=== PATIENT | female | born 1970 | race Caucasian/White ===

== ENCOUNTER 2017-05-08 08:35 | Emergency (ER) | payer OTHER ==
[~2017-05-08] VITALS: Ht 175.3 cm; Wt 117.0 kg
[~2017-05-08 08:35] MED LIST: AMLO2.5T75 PO; BAC10 PO; BACLOFEN; CIT20 PO; CLON-1 PO; CLON-303 PO; ESC10 PO; ESCI20TA38 PO; FENT-16 TD; GABA-1 PO; HYDR2TAB41 PO; LEVO50 PO; LEVO50TA80 PO; METO-1 PO; MORP30CA15 PO; MORP60CA15 PO; NAP550 PO; OXYC-717 PO; OXYC-865 PO; PERCOCET; PERCOCET PO; PRED20TA6 PO; PROM-110 PO; QUET200T29 PO; TRAZ-156 PO
[2017-05-08 08:39] VITALS: BP 128/91
[2017-05-08] MEDS ORDERED: ONDANSETRON 4 MG/2 ML VIAL IVP ONE (09:10)
[2017-05-08 09:17] LABS: PLATELET COUNT, AUTOMATED 201 K/uL (150-450)
--- NOTE | 2017-05-08 09:21 | ER Report ---
History and Physical Time Seen By MD: 08:45 Hx. of Stated Complaint: CONSTIPATION X 3 WEEKS HPI/ROS CHIEF COMPLAINT: Chronic constipation abdominal discomfort HISTORY OF PRESENT ILLNESS: Patient is a 46-year-old female multiple surgical history including abdominal back surgery comes in with chronic constipation is been seen by primary care given numerous laxatives evidently she is on significant amounts of opioids for the last 10 years patient states that she's had some loose bowel movements last couple days but nothing regular and she's having abdominal discomfort. Patient has had nausea without vomiting denies any additional complaints at this time has no fever chills or sweats REVIEW OF SYSTEMS: Respiratory: No cough, no dyspnea. Cardiovascular: No chest pain, no palpitations. Gastrointestinal: Abdominal pain constipation nausea without vomiting Musculoskeletal: Chronic back pain back pain. Remainder of the 14 system rev: Yes Allergies: Coded Allergies: iodine (Verified Allergy, Unknown, 03/07/15) codeine (Verified Adverse Reaction, Intermediate, NAUSEA AND VOMITING, 03/07/15) Uncoded Allergies: CONTRAST (Allergy, Intermediate, HIVES, 05/08/17) Home Meds Active Scripts Oxycodone Hcl/Acetaminophen (PERCOCET 5-325 MG TABLET) 1 Each Tablet, 1 EACH PO Q4-6H Y for PAIN, #15 TAB Prov:MICHEAL HICKMAN [facility] 03/07/15 Promethazine Hcl (PROMETHAZINE HCL) 25 Mg Tablet, 25 MG PO Q8H Y for NAUSEA/ VOMITING, #12 TAB Prov:MICHEAL HICKMAN [facility] 03/07/15 Trazodone Hcl (TRAZODONE HCL) 50 Mg Tablet, 50 MG PO BID, #60 Prov:GRECIA HARRIS MD 03/12/14 Reported Medications Gabapentin (Neurontin) 600 Mg Tablet, 600 MG PO TID, 0 Refills 11/16/10 Morphine Sulfate (Dinora) 30 Mg Cap.sr.pel, 90 MG PO QAM, 0 Refills 11/16/10 Levothyroxine Sodium (Levothyroxine Sodium) 50 Mcg Tablet, 50 MCG PO QAM, 0 Refills 11/16/10 Metoprolol Tartrate (Lopressor) 50 Mg Tablet, 50 MG PO BID, 0 Refills 11/16/10 Clonazepam (Klonopin) 1 Mg Tablet, 1 MG PO DAILY, 0 Refills 11/16/10 Baclofen (Lioresal) 10 Mg Tab, 20 MG PO QID, 0 Refills 11/16/10 Oxycodone Hcl/Acetaminophen (Percocet 10/325 Mg Tablet) 10 Mg/325 Mg Tab, 1 TAB PO PRN, 0 Refills 11/16/10 Discontinued Reported Medications Escitalopram Oxalate (LEXAPRO) 20 Mg Tablet, 20 MG PO QDAY 03/07/15 Amlodipine Besylate (Norvasc) 2.5 Mg Tablet, 2.5 MG PO QHS, 0 Refills 11/16/10 Discontinued Scripts Prednisone (PREDNISONE) 20 Mg Tablet, 20 MG PO BID, #10 TAB Prov:MICHEAL HICKMAN FURNITURE MANAGER 03/07/15 Reviewed Nurses Notes: Yes Old Medical Records Reviewed: Yes Hx Smoking: Yes Smoking Status: Current: Every Day Smoker Hx Substance Use Disorder: No Hx Alcohol Use: No Constitutional Vital Sign - Last 24 Hours 05/08/17 05/08/17 08:39 09:41 Temp 98.3 Pulse 95 Resp 16 B/P (MAP) 128/91 Pulse Ox 93 O2 Delivery Room Air O2 Flow Rate 2.0 Physical Exam General Appearance: [The patient is alert, has no immediate need for airway protection and no current signs of toxicity.] [ ] Eyes: Pupils equal and round no injection. Respiratory: Chest is non tender, lungs are clear to auscultation. Cardiac: regular rate and rhythm [ ] Gastrointestinal: Hyperactive bowel sounds tender to palpation in all quadrants no rebound guarding or masses Musculoskeletal: Neck: Neck is supple and non tender. Extremities have full range of motion and are non tender. Skin: No rashes or lesions. [ ] DIFFERENTIAL DIAGNOSIS: After history and physical exam differential diagnosis was considered for chronic constipation secondary to opioid use small bowel obstruction colitis Medical Decision Making Data Points Result Diagram: 05/08/1790105/08/17901 Laboratory Hematology Test 05/08/17 09:02 05/08/17 09:29 Red Blood Count 5.56 M/uL (4.17-5.56) Mean Corpuscular Volume 88.5 fL (80.0-96.0) Mean Corpuscular Hemoglobin 31.2 pg (26.0-33.0) Mean Corpuscular Hemoglobin Concent 35.2 g/dL (32.0-36.0) Red Cell Distribution Width 13.7 % (11.5-14.5) Mean Platelet Volume 8.8 fL (7.2-11.1) Neutrophils (%) (Auto) 46.9 % (39.4-72.5) Lymphocytes (%) (Auto) 44.7 % (17.6-49.6) Monocytes (%) (Auto) 6.1 % (4.1-12.4) Eosinophils (%) (Auto) 1.7 % (0.4-6.7) Basophils (%) (Auto) 0.6 % (0.3-1.4) Nucleated RBC Relative Count (auto) 0.1 /100WBC Neutrophils # (Auto) 4.4 K/uL (2.0-7.4) Lymphocytes # (Auto) 4.2 K/uL (1.3-3.6) Monocytes # (Auto) 0.6 K/uL (0.3-1.0) Eosinophils # (Auto) 0.2 K/uL (0.0-0.5) Basophils # (Auto) 0.1 K/uL (0.0-0.1) Nucleated RBC Absolute Count (auto) 0.01 K/uL Prothrombin Time 13.5 seconds (12.0-14.4) Prothromb Time International Ratio 1.03 Activated Partial Thromboplast Time 33 seconds (23-35) Sodium Level 137 mmol/L (137-145) Potassium Level 3.9 mmol/L (3.5-5.0) Chloride Level 102 mmol/L (98-107) Carbon Dioxide Level 21 mmol/L (22-31) Blood Urea Nitrogen 15 mg/dl (7-18) Creatinine 0.80 mg/dl (0.52-1.04) Glomerular Filtration Rate Calc > 60.0 Random Glucose 106 mg/dl (75-110) Calcium Level 9.4 mg/dl (8.4-10.2) Total Bilirubin 0.6 mg/dl (0.2-1.3) Aspartate Amino Transf (AST/SGOT) 34 U/L (0-35) Alanine Aminotransferase (ALT/SGPT) 49 U/L (0-56) Alkaline Phosphatase 67 U/L (0-126) Total Protein 8.3 gm/dl (6.3-8.2) Albumin 4.6 g/dl (3.5-5.0) Lipase 61 U/L (23-300) Serum Alcohol < 10 mg/dl Urine Color Yellow Urine Clarity Clear Urine pH 5.0 pH (4.8-9.5) Urine Specific [place] 1.006 Urine Protein Negative mg/dL (NEGATIVE) Urine Glucose (UA) Negative mg/dL (NEGATIVE) Urine Ketones Negative mg/dL (NEGATIVE) Urine Blood Negative (NEGATIVE) Urine Nitrite Negative (NEGATIVE) Urine Bilirubin Negative (NEGATIVE) Urine Urobilinogen Negative mg/dL (0.2-1.9) Urine Leukocyte Esterase Negative (NEGATIVE) Urine RBC <1 /HPF (0-2/HPF) Urine WBC 1 /HPF (0-5/HPF) Urine Squamous Epithelial Cells Many /LPF (</=FEW) Urine Bacteria Few /HPF (NONE-FEW) Urine Mucus None /HPF (NONE-FEW) Chemistry Test 05/08/17 09:02 05/08/17 09:29 White Blood Count 9.3 k/uL (4.5-11.0) Red Blood Count 5.56 M/uL (4.17-5.56) Hemoglobin 17.3 g/dL (12.0-16.0) Hematocrit 49.2 % (34.0-47.0) Mean Corpuscular Volume 88.5 fL (80.0-96.0) Mean Corpuscular Hemoglobin 31.2 pg (26.0-33.0) Mean Corpuscular Hemoglobin Concent 35.2 g/dL (32.0-36.0) Red Cell Distribution Width 13.7 % (11.5-14.5) Platelet Count 201 K/uL (150-450) Mean Platelet Volume 8.8 fL (7.2-11.1) Neutrophils (%) (Auto) 46.9 % (39.4-72.5) Lymphocytes (%) (Auto) 44.7 % (17.6-49.6) Monocytes (%) (Auto) 6.1 % (4.1-12.4) Eosinophils (%) (Auto) 1.7 % (0.4-6.7) Basophils (%) (Auto) 0.6 % (0.3-1.4) Nucleated RBC Relative Count (auto) 0.1 /100WBC Neutrophils # (Auto) 4.4 K/uL (2.0-7.4) Lymphocytes # (Auto) 4.2 K/uL (1.3-3.6) Monocytes # (Auto) 0.6 K/uL (0.3-1.0) Eosinophils # (Auto) 0.2 K/uL (0.0-0.5) Basophils # (Auto) 0.1 K/uL (0.0-0.1) Nucleated RBC Absolute Count (auto) 0.01 K/uL Prothrombin Time 13.5 seconds (12.0-14.4) Prothromb Time International Ratio 1.03 Activated Partial Thromboplast Time 33 seconds (23-35) Glomerular Filtration Rate Calc > 60.0 Calcium Level 9.4 mg/dl (8.4-10.2) Total Bilirubin 0.6 mg/dl (0.2-1.3) Aspartate Amino Transf (AST/SGOT) 34 U/L (0-35) Alanine Aminotransferase (ALT/SGPT) 49 U/L (0-56) Alkaline Phosphatase 67 U/L (0-126) Total Protein 8.3 gm/dl (6.3-8.2) Albumin 4.6 g/dl (3.5-5.0) Lipase 61 U/L (23-300) Serum Alcohol < 10 mg/dl Urine Color Yellow Urine Clarity Clear Urine pH 5.0 pH (4.8-9.5) Urine Specific [place] 1.006 Urine Protein Negative mg/dL (NEGATIVE) Urine Glucose (UA) Negative mg/dL (NEGATIVE) Urine Ketones Negative mg/dL (NEGATIVE) Urine Blood Negative (NEGATIVE) Urine Nitrite Negative (NEGATIVE) Urine Bilirubin Negative (NEGATIVE) Urine Urobilinogen Negative mg/dL (0.2-1.9) Urine Leukocyte Esterase Negative (NEGATIVE) Urine RBC <1 /HPF (0-2/HPF) Urine WBC 1 /HPF (0-5/HPF) Urine Squamous Epithelial Cells Many /LPF (</=FEW) Urine Bacteria Few /HPF (NONE-FEW) Urine Mucus None /HPF (NONE-FEW) Coagulation Test 05/08/17 09:02 Prothrombin Time 13.5 seconds Prothromb Time International Ratio 1.03 Activated Partial Thromboplast Time 33 seconds Toxicology Test 05/08/17 09:02 Serum Alcohol < 10 mg/dl Urinalysis Test 05/08/17 09:29 Urine Color Yellow Urine Clarity Clear Urine pH 5.0 pH (4.8-9.5) Urine Specific [place] 1.006 Urine Protein Negative mg/dL (NEGATIVE) Urine Glucose (UA) Negative mg/dL (NEGATIVE) Urine Ketones Negative mg/dL (NEGATIVE) Urine Blood Negative (NEGATIVE) Urine Nitrite Negative (NEGATIVE) Urine Bilirubin Negative (NEGATIVE) Urine Urobilinogen Negative mg/dL (0.2-1.9) Urine Leukocyte Esterase Negative (NEGATIVE) Urine RBC <1 /HPF (0-2/HPF) Urine WBC 1 /HPF (0-5/HPF) Urine Squamous Epithelial Cells Many /LPF (</=FEW) Urine Bacteria Few /HPF (NONE-FEW) Urine Mucus None /HPF (NONE-FEW) ED Course/Re-evaluation ED Course ED clinical course 46-year-old female presented emergency Department today with complaint of constipation she is on chronic opioid significant doses on a daily basis for the past 10 years x-ray KUB as well as CAT scan performed showed no obvious obstruction SBO no sign of constipation patient electronic to otherwise unremarkable patient will be discharge diagnosis opioid-induced slow motility and constipation we'll start her on Moban taken primary care follow-up Decision to Disposition Date: May 08, 2017 Decision to Disposition Time: 10:25 Depart Departure Latest Vital Signs Vital Signs Date Time Temp Pulse Resp B/P (MAP) Pulse Ox O2 Delivery O2 Flow Rate FiO2 05/08/17 09:41 2.0 05/08/17 08:39 98.3 95 16 128/91 93 Room Air Impression: Primary Impression: Chronic pain Condition: Improved Disposition: HOME OR SELF-CARE Referrals: ZEUS SELBY DO 5 Days Patient Instructions: Abdominal Pain (ED) ISIS HIRSCH MD May 08, 2017 09:21
[2017-05-08 09:22] LABS: INR 1.03
[2017-05-08] MEDS ORDERED: NS 0.9% 50 ML VIAL 50 ML ONE (09:30)
[2017-05-08] MEDS ORDERED: IOPAMIDOL 76% 75 ML INFUS BTL 75 ML ONE (09:30)
--- NOTE | 2017-05-08 09:46 | RADIOLOGY IMAGING REPORT ---
FACILITY: [facility] [place] PATIENT NAME: Megan Valdez : 1970 MR: [id number] V: [id number] EXAM DATE: ORDERING PHYSICIAN: ISIS HIRSCH TECHNOLOGIST: Location: [facility] Patient: Megan Valedz : 1970 Visit/Account:[id number] Date of Sevice: 05/08/2017 EXAMINATION: KUB 05/08/2017 9:16 AM HISTORY: Abdominal pain. Constipation. COMPARISON: None FINDINGS: Bowel gas pattern is unremarkable, without significant distention. No substantial fecal retention. No visible calculus. Soft tissue contours are unremarkable. Previous lumbosacral fusion. IMPRESSION: Nonspecific bowel gas pattern. No significant fecal retention. Report Dictated By: Ivan Obregon MD at 05/08/2017 9:37 AM Report E-Signed By: Ivan Obregon MD at 05/08/2017 9:38 AM WSN:[id number]
--- NOTE | 2017-05-08 10:20 | RADIOLOGY IMAGING REPORT ---
FACILITY: [facility] PATIENT NAME: Megan Valdez : 1970 MR: [id number] V: [id number] EXAM DATE: ORDERING PHYSICIAN: ISIS HIRSCH TECHNOLOGIST: Location: [facility] [place] Patient: Megan Valdez : 1970 Visit/Account:[id number] Date of Sevice: 05/08/2017 CT abdomen and pelvis without contrast Indication: Abdominal pain. Possible bowel obstruction. Comparison: Plain film exam from earlier today was reviewed. Technique: Axial CT images are obtained through the abdomen and pelvis. Reformatted coronal and sagit corrine images were reviewed. IV contrast was not administered. One of the following dose optimization techniques was utilized in the performance of this exam: Autom ated exposure control; adjustment of the mA and/or kV according to the patient's size; or use of an i terative reconstruction technique. Specific details can be referenced in the facility's radiology C T exam operational policy. Findings: Lower lung [place]: Minimal atelectasis/peripheral scarring seen in the right lower lobe. Lung bases o therwise clear. Evaluation of the solid organs of the abdomen is limited without IV contrast. Liver: No focal parenchymal abnormality of the liver. Biliary: Gallbladder is partially contracted. No biliary dilatation. Pancreas: Normal appearance. Spleen: Normal appearance.s Adrenal glands: Unremarkable. Kidneys / retroperitoneum: No evidence of nephrolithiasis or hydronephrosis Bowel / peritoneum / mesenteries: The colon is unremarkable and is partially stool and gas filled. No wall thickening or pericolonic inflammation. Appendix not clearly seen. No CT evidence of appendicit is. No focally dilated small bowel loops. No evidence to suggest bowel obstruction. No free air. No f ree pelvic fluid. Lymph node assessment: No pathologic adenopathy identified. Pelvic structures: There has been previous hysterectomy. No free fluid. Cyst and/or dominant folli berna seen within the left ovary measuring 1.8 cm in size. This may be physiologic in a premenopausal f emale. Clinical correlation necessary. Vessels: No significant atherosclerotic calcifications seen throughout a nonaneurysmal abdominal aort a and branches. Musculoskeletal / Body wall: There has been prior anterior and posterior fusion procedure of the low lumbar spine extending from L4 to S1. Laminectomy defects are also seen. No compression fracture. IMPRESSION: 1. No acute inflammatory process within the abdomen and the pelvis. No evidence of small bowel obstru ction. 2. Cyst or follicle involving the left ovary measuring 1.8 cm. 3. Postoperative changes involving the low lumbar spine. Report Dictated By: Jey Stearns at 05/08/2017 9:56 AM Report E-Signed By: Jey Stearns at 05/08/2017 10:14 AM WSN:[id number]
== END 2017-05-08 10:40 | disposition home or self-care (01) ==
LOC: ER 08:49
DX: G89.29 Other chronic pain (principal)
CPT/HCPCS: 74018; 74176; 80320; 81001; 83690; 85025; 85610; 85730; 96374; 99283; J2405; 82040; 82247; 82310; 82374; 82435; 82565; 82947; 84075; 84132; 84155; 84295; 84450; 84460; 84520; J7050; Q9967

== ENCOUNTER 2017-07-05 10:22 | Emergency (ER) | payer OTHER ==
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
[2017-07-05 11:00] VITALS: BP 105/62
--- NOTE | 2017-07-05 11:07 | RADIOLOGY IMAGING REPORT ---
FACILITY: [facility] PATIENT NAME: Megan Valdez : 1970 MR: [id number] V: [id number] EXAM DATE: ORDERING PHYSICIAN: ISIS HIRSCH TECHNOLOGIST: Location: [facility] [place] Patient: Megan Valdez : 1970 Visit/Account:[id number] Date of Sevice: 07/05/2017 Exam type: KNEE 3 VIEW LEFT History: Left knee pain Comparison: None. Findings: There is mild narrowing of the medial compartment of the left knee with very mild marginal spurring. There also appears to be spurring at the tibial plateau along the anterior medial surface. Mild to moderate joint changes are also noted patellofemoral joint. There suggestion of a small amount of fl uid in the suprapatellar bursa. No evidence of acute fracture or dislocation. IMPRESSION: 1. Mild degenerative changes involving the medial compartment of the left knee and mild to moderate joint changes involving the patellofemoral compartment although no evidence of acute fracture disloca tion Suggestion of small effusion in the suprapatellar bursa Report Dictated By: Jessica Lucas MD at 07/05/2017 11:01 AM Report E-Signed By: Jessica Lucas MD at 07/05/2017 11:03 AM WSN:[email or web address]
== END 2017-07-05 11:36 | disposition home or self-care (01) ==
LOC: ER 10:23
DX: M25.562 Pain in left knee (principal)
CPT/HCPCS: 73562; 99283; L1830

== ENCOUNTER 2018-04-12 10:54 | Emergency (ER) | payer OTHER ==
[~2018-04-12 10:54] MED LIST changes: -TRAZ-156 PO; +TRAZ50TA34 PO
[2018-04-12 11:00] VITALS: BP 184/119
--- NOTE | 2018-04-12 11:06 | ER Report ---
History and Physical Time Seen By MD: 11:03 Hx. of Stated Complaint: PATIENT REPORTS THAT SHE WANTS TO DETOX FROM MORPHINE AND PERCOCET HPI/ROS CHIEF COMPLAINT: Detox from opiates HISTORY OF PRESENT ILLNESS: This is a 47-year-old female who presents to the emergency department lying to detox from her opiates. The patient states that she has spondylolisthesis and has had back surgeries and most recently had a left total knee replacement. Patient states that she's been on narcotic pain medications for the last 15 years, she states that she is tired of feeling foggy, sleepy and "just out of it". Patient is requesting detox from her prescription opiate medications. The last dose taken was yesterday morning, she typically takes her medications on a daily basis. She states that she is feeling mildly anxious at this time. No fevers or chills. Mild intermittent nausea, no vomiting. No diarrhea. No headaches. No rashes. REVIEW OF SYSTEMS: Constitutional: No fever, no chills. Eyes: No discharge. ENT: No sore throat. Cardiovascular: No chest pain, no palpitations. Respiratory: No cough, no shortness of breath. Gastrointestinal: As above. Genitourinary: No hematuria. Musculoskeletal: No back pain. Skin: No rashes. Neurological: No headache. Psychological: As above. Allergies: Coded Allergies: iodine (Verified Allergy, Unknown, 07/05/17) codeine (Verified Adverse Reaction, Intermediate, NAUSEA AND VOMITING, 07/05/17) Uncoded Allergies: CONTRAST (Allergy, Intermediate, HIVES, 05/08/17) Home Meds Active Scripts Clonazepam (KLONOPIN) 1 Mg Tablet, 1 MG PO BID, #20 TAB Prov:ERICA SHRESTHA [facility] 04/12/18 Clonidine Hcl (CLONIDINE HCL) 0.1 Mg Tablet, 0.1 MG PO BID, #20 TAB 0 Refills Prov:ERICA SHRESTHA [facility] 04/12/18 Promethazine Hcl (PROMETHAZINE HCL) 25 Mg Tablet, 25 MG PO Q8H PRN for NAUSEA/VOMITING, #12 TAB Prov:MICHEAL HICKMAN [facility] 03/07/15 Trazodone Hcl (TRAZODONE HCL) 50 Mg Tablet, 50 MG PO BID, #60 Prov:GRECIA HARRIS MD 03/12/14 Reported Medications Omeprazole Magnesium (PRILOSEC OTC) 20 Mg Tablet.dr, 2 TAB PO QDAY, TAB 04/12/18 Escitalopram Oxalate (LEXAPRO) 20 Mg Tablet, 20 MG PO QDAY, TAB 04/12/18 Meloxicam (MELOXICAM) 7.5 Mg Tablet, 5 MG PO QDAY 04/12/18 Gabapentin (Neurontin) 600 Mg Tablet, 600 MG PO TID, 0 Refills 11/16/10 Morphine Sulfate (Dinora) 30 Mg Cap.sr.pel, 90 MG PO QAM, 0 Refills 11/16/10 Levothyroxine Sodium (Levothyroxine Sodium) 50 Mcg Tablet, 75 MCG PO QAM, 0 Refills 11/16/10 Metoprolol Tartrate (Lopressor) 50 Mg Tablet, 50 MG PO BID, 0 Refills 11/16/10 Clonazepam (Klonopin) 1 Mg Tablet, 1 MG PO DAILY, 0 Refills 11/16/10 Baclofen (Lioresal) 10 Mg Tab, 20 MG PO QID, 0 Refills 11/16/10 Oxycodone Hcl/Acetaminophen (Percocet 10/325 Mg Tablet) 10 Mg/325 Mg Tab, 1 TAB PO PRN, 0 Refills 11/16/10 Past Medical/Surgical History The patient has a past medical and surgical history of hypertension, acid reflux, chronic back pain, spinal listhesis, arthritis, hypothyroidism, anxiety, panic attacks, depression, right knee surgery. Tonsillectomy. Reviewed Nurses Notes: Yes Hx Smoking: Yes Smoking Status: Current: Every Day Smoker Hx Substance Use Disorder: No Hx Alcohol Use: No Constitutional Vital Sign - Last 24 Hours 04/12/18 11:00 Temp 97.9 Pulse 81 Resp 20 B/P (MAP) 184/119 Pulse Ox 95 O2 Delivery Room Air Physical Exam General Appearance: The patient is alert, has no immediate need for airway protection and no signs of toxicity. Eyes: Pupils equal and round no pallor or injection. ENT, Mouth: Mucous membranes are dry, geographic tongue. Respiratory: There are no retractions, lungs are clear to auscultation. Cardiovascular: Regular rate and rhythm, no murmurs, clicks or rubs. Gastrointestinal: Abdomen is soft and non tender, no masses, bowel sounds normal. Neurological: Alert and oriented 4. Moving all extremities. Following all commands. No focal neuro deficits. Skin: Warm and dry, no rashes. Musculoskeletal: Neck is supple non tender. Extremities are nontender, nonswollen and have full range of motion. DIFFERENTIAL DIAGNOSIS: After history and physical exam differential diagnosis was considered for seizure, hypertension and anxiety. Medical Decision Making Data Points Result Diagram: 04/12/18 1132 04/12/18 1132 Laboratory Hematology Test 04/12/18 11:00 04/12/18 11:32 Urine Color Straw Urine Clarity Clear Urine pH 5.0 pH (4.8-9.5) Urine Specific [place] 1.005 Urine Protein Negative mg/dL (NEGATIVE) Urine Glucose (UA) Negative mg/dL (NEGATIVE) Urine Ketones Negative mg/dL (NEGATIVE) Urine Blood Negative (NEGATIVE) Urine Nitrite Negative (NEGATIVE) Urine Bilirubin Negative (NEGATIVE) Urine Urobilinogen Negative mg/dL (0.2-1.9) Urine Leukocyte Esterase Negative (NEGATIVE) Urine RBC <1 /HPF (0-2/HPF) Urine WBC 1 /HPF (0-5/HPF) Urine Squamous Epithelial Cells Many /LPF (</=FEW) Urine Bacteria Negative /HPF (NONE-FEW) Urine Mucus None /HPF (NONE-FEW) Urine HCG, Qualitative Negative (NEGATIVE) Urine Opiates Screen Positive Urine Barbiturates Screen Negative Ur Tricyclic Antidepressants Screen Negative Urine Phencyclidine Screen Negative Urine Amphetamines Screen Negative Urine Benzodiazepines Screen Negative Urine Cocaine Screen Negative Urine Cannabinoids Screen Negative Red Blood Count 5.13 M/uL (4.17-5.56) Mean Corpuscular Volume 86.1 fL (80.0-96.0) Mean Corpuscular Hemoglobin 29.8 pg (26.0-33.0) Mean Corpuscular Hemoglobin Concent 34.6 g/dL (32.0-36.0) Red Cell Distribution Width 14.4 % (11.5-14.5) Mean Platelet Volume 8.1 fL (7.2-11.1) Neutrophils (%) (Auto) 73.5 % (39.4-72.5) Lymphocytes (%) (Auto) 21.3 % (17.6-49.6) Monocytes (%) (Auto) 3.5 % (4.1-12.4) Eosinophils (%) (Auto) 0.2 % (0.4-6.7) Basophils (%) (Auto) 1.5 % (0.3-1.4) Nucleated RBC Relative Count (auto) 0.1 /100WBC Neutrophils # (Auto) 5.8 K/uL (2.0-7.4) Lymphocytes # (Auto) 1.7 K/uL (1.3-3.6) Monocytes # (Auto) 0.3 K/uL (0.3-1.0) Eosinophils # (Auto) 0.0 K/uL (0.0-0.5) Basophils # (Auto) 0.1 K/uL (0.0-0.1) Nucleated RBC Absolute Count (auto) 0.01 K/uL Sodium Level 136 mmol/L (137-145) Potassium Level 3.8 mmol/L (3.5-5.0) Chloride Level 104 mmol/L (98-107) Carbon Dioxide Level 21 mmol/L (22-31) Blood Urea Nitrogen 11 mg/dl (7-18) Creatinine 0.80 mg/dl (0.52-1.04) Glomerular Filtration Rate Calc > 60.0 Random Glucose 142 mg/dl (75-110) Calcium Level 9.5 mg/dl (8.4-10.2) Magnesium Level 1.9 mg/dl (1.7-2.2) Total Bilirubin 0.4 mg/dl (0.2-1.3) Aspartate Amino Transf (AST/SGOT) 23 U/L (0-35) Alanine Aminotransferase (ALT/SGPT) 27 U/L (0-56) Alkaline Phosphatase 63 U/L (0-126) Total Protein 7.9 g/dl (6.3-8.2) Albumin 4.5 g/dl (3.5-5.0) Salicylates Level < 10 mg/L Salicylate Last Dose Date unk Acetaminophen Level < 10 ug/ml Serum Alcohol < 10 mg/dl Chemistry Test 04/12/18 11:00 04/12/18 11:32 Urine Color Straw Urine Clarity Clear Urine pH 5.0 pH (4.8-9.5) Urine Specific [place] 1.005 Urine Protein Negative mg/dL (NEGATIVE) Urine Glucose (UA) Negative mg/dL (NEGATIVE) Urine Ketones Negative mg/dL (NEGATIVE) Urine Blood Negative (NEGATIVE) Urine Nitrite Negative (NEGATIVE) Urine Bilirubin Negative (NEGATIVE) Urine Urobilinogen Negative mg/dL (0.2-1.9) Urine Leukocyte Esterase Negative (NEGATIVE) Urine RBC <1 /HPF (0-2/HPF) Urine WBC 1 /HPF (0-5/HPF) Urine Squamous Epithelial Cells Many /LPF (</=FEW) Urine Bacteria Negative /HPF (NONE-FEW) Urine Mucus None /HPF (NONE-FEW) Urine HCG, Qualitative Negative (NEGATIVE) Urine Opiates Screen Positive Urine Barbiturates Screen Negative Ur Tricyclic Antidepressants Screen Negative Urine Phencyclidine Screen Negative Urine Amphetamines Screen Negative Urine Benzodiazepines Screen Negative Urine Cocaine Screen Negative Urine Cannabinoids Screen Negative White Blood Count 7.9 k/uL (4.5-11.0) Red Blood Count 5.13 M/uL (4.17-5.56) Hemoglobin 15.3 g/dL (12.0-16.0) Hematocrit 44.2 % (34.0-47.0) Mean Corpuscular Volume 86.1 fL (80.0-96.0) Mean Corpuscular Hemoglobin 29.8 pg (26.0-33.0) Mean Corpuscular Hemoglobin Concent 34.6 g/dL (32.0-36.0) Red Cell Distribution Width 14.4 % (11.5-14.5) Platelet Count 211 K/uL (150-450) Mean Platelet Volume 8.1 fL (7.2-11.1) Neutrophils (%) (Auto) 73.5 % (39.4-72.5) Lymphocytes (%) (Auto) 21.3 % (17.6-49.6) Monocytes (%) (Auto) 3.5 % (4.1-12.4) Eosinophils (%) (Auto) 0.2 % (0.4-6.7) Basophils (%) (Auto) 1.5 % (0.3-1.4) Nucleated RBC Relative Count (auto) 0.1 /100WBC Neutrophils # (Auto) 5.8 K/uL (2.0-7.4) Lymphocytes # (Auto) 1.7 K/uL (1.3-3.6) Monocytes # (Auto) 0.3 K/uL (0.3-1.0) Eosinophils # (Auto) 0.0 K/uL (0.0-0.5) Basophils # (Auto) 0.1 K/uL (0.0-0.1) Nucleated RBC Absolute Count (auto) 0.01 K/uL Glomerular Filtration Rate Calc > 60.0 Calcium Level 9.5 mg/dl (8.4-10.2) Magnesium Level 1.9 mg/dl (1.7-2.2) Total Bilirubin 0.4 mg/dl (0.2-1.3) Aspartate Amino Transf (AST/SGOT) 23 U/L (0-35) Alanine Aminotransferase (ALT/SGPT) 27 U/L (0-56) Alkaline Phosphatase 63 U/L (0-126) Total Protein 7.9 g/dl (6.3-8.2) Albumin 4.5 g/dl (3.5-5.0) Salicylates Level < 10 mg/L Salicylate Last Dose Date unk Acetaminophen Level < 10 ug/ml Serum Alcohol < 10 mg/dl Toxicology Test 04/12/18 11:00 04/12/18 11:32 Urine Opiates Screen Positive Urine Barbiturates Screen Negative Ur Tricyclic Antidepressants Screen Negative Urine Phencyclidine Screen Negative Urine Amphetamines Screen Negative Urine Benzodiazepines Screen Negative Urine Cocaine Screen Negative Urine Cannabinoids Screen Negative Salicylates Level < 10 mg/L Salicylate Last Dose Date unk Acetaminophen Level < 10 ug/ml Serum Alcohol < 10 mg/dl Urinalysis Test 04/12/18 11:00 Urine Color Straw Urine Clarity Clear Urine pH 5.0 pH (4.8-9.5) Urine Specific [place] 1.005 Urine Protein Negative mg/dL (NEGATIVE) Urine Glucose (UA) Negative mg/dL (NEGATIVE) Urine Ketones Negative mg/dL (NEGATIVE) Urine Blood Negative (NEGATIVE) Urine Nitrite Negative (NEGATIVE) Urine Bilirubin Negative (NEGATIVE) Urine Urobilinogen Negative mg/dL (0.2-1.9) Urine Leukocyte Esterase Negative (NEGATIVE) Urine RBC <1 /HPF (0-2/HPF) Urine WBC 1 /HPF (0-5/HPF) Urine Squamous Epithelial Cells Many /LPF (</=FEW) Urine Bacteria Negative /HPF (NONE-FEW) Urine Mucus None /HPF (NONE-FEW) Urine HCG, Qualitative Negative (NEGATIVE) ED Course/Re-evaluation ED Course The patient was admitted to room. History and physical were obtained. Differential diagnoses were considered. A CBC, CMP and psych panel were collected. UA was corrected. Lab studies unremarkable. [facility] did come down and speak with the patient, patient was provided information on inpatient treatment program for opiate addiction. The patient was given a prescription for clonidine and I did refill her clonazepam as well, patient will follow-up with Dr. Soto saw her primary care provider this week and likely wean off of the narcotics in a controlled setting. The patient was also given one clonidine while in the emergency department, her blood pressure did improve, the last diastolic was 88. Patient was encouraged return to ER for any other concerns or worsening symptoms. Patient was in agreement with plan of care and discharged. Decision to Disposition Date: Apr 12, 2018 Decision to Disposition Time: 12:29 Depart Departure Latest Vital Signs Vital Signs Date Time Temp Pulse Resp B/P (MAP) Pulse Ox O2 Delivery O2 Flow Rate FiO2 04/12/18 11:00 97.9 81 20 184/119 95 Room Air Impression: Primary Impression: Opiate withdrawal Condition: Improved Disposition: HOME OR SELF-CARE Referrals: ZEUS SELBY DO (PCP) 5 Days New Scripts Clonazepam (KLONOPIN) 1 Mg Tablet 1 MG PO BID, #20 TAB Prov: ERICA SHRESTHA [facility] 04/12/18 Clonidine Hcl (CLONIDINE HCL) 0.1 Mg Tablet 0.1 MG PO BID, #20 TAB 0 Refills Prov: ERICA SHRESTHA [facility] 04/12/18 Patient Instructions: Narcotic Pain Management (ED) Additional Instructions: No concerning findings with lab studies. Please take the Clonidine 0.1mg tablet once a day, this can affect your blood pressure to be sure to make slow transitional changes while taking the medication. Take the Klonipin as needed for additional anxiety. Please follow up with Dr. Selby this week for reevaluation and a more controlled transition off your medications. Drink plenty of water. Get plenty of rest. Return to the ED for any other concerns or worsening symptoms. ERICA SHRESTHA [facility] Apr 12, 2018 11:06
[2018-04-12] MEDS ORDERED: OMEP-218 PO (11:10)
[2018-04-12] MEDS ORDERED: ESCI20TA38 PO (11:10)
[2018-04-12] MEDS ORDERED: MELO-205 PO (11:10)
[2018-04-12 11:40] LABS: PLATELET COUNT, AUTOMATED 211 K/uL (150-450)
[2018-04-12] MEDS ORDERED: cloNIDine HCL 0.1 MG TAB PO ONE (12:20)
[2018-04-12] MEDS ORDERED: CLON-1 PO (12:24)
[2018-04-12] MEDS ORDERED: CLON-327 PO (12:24)
== END 2018-04-12 13:01 | disposition home or self-care (01) ==
LOC: ER 10:59
DX: F11.23 Opioid dependence with withdrawal (principal)
CPT/HCPCS: 36415; 80305; 80320; 80329; 81001; 81025; 82040; 82247; 82310; 82374; 82435; 82565; 82947; 83735; 84075; 84132; 84155; 84295; 84443; 84450; 84460; 84520; 85025; 99283

== ENCOUNTER 2018-04-14 11:02 | Emergency (ER) | payer OTHER ==
[~2018-04-14 11:02] MED LIST changes: +CLON-327 PO; +MELO-205 PO; +OMEP-218 PO
[2018-04-14] MEDS ORDERED: cloNIDine HCL 0.1 MG TAB PO ONE (11:25)
--- NOTE | 2018-04-14 11:25 | ER Report ---
History and Physical Time Seen By MD: 11:16 Hx. of Stated Complaint: PATIENT REPORTS THAT HER PRIMARY CARE PROVIDER TOLD HER TO COME TO THE ER TO HAVE HER BLOOD PRESSURE LOWERED HPI/ROS CHIEF COMPLAINT: High blood pressure HISTORY OF PRESENT ILLNESS: This is a 47-year-old female presents to the emergency department for concerned of her blood pressure. Patient was seen and evaluated in the emergency department 2 days ago, wanting to withdrawal from her narcotics, she was placed on clonidine and instructed to taper off of her narcotics with her primary care provider. She states she has a wrist style blood pressure machine at home and she's been getting blood pressures in the 200s, she contacted her primary care provider, they instructed her to come to the ER for evaluation. Upon arrival the patient's blood pressure is 145/99, she does not have a headache at this time. She states she can feel when her blood pressure is elevated as it does cause a headache. She denies nausea or vomiting. She does however have some achiness in her legs surrounding her recent total knee replacement. She denies fevers. No visual changes. No rashes. No chest pain or shortness of breath. REVIEW OF SYSTEMS: Constitutional: No fever, no chills. Eyes: No discharge. ENT: No sore throat. Cardiovascular: As above. Respiratory: No cough, no shortness of breath. Gastrointestinal: No abdominal pain, no vomiting. Genitourinary: No hematuria. Musculoskeletal: No back pain. Skin: No rashes. Neurological: As above. Allergies: Coded Allergies: iodine (Verified Allergy, Unknown, 07/05/17) codeine (Verified Adverse Reaction, Intermediate, NAUSEA AND VOMITING, 07/05/17) Uncoded Allergies: CONTRAST (Allergy, Intermediate, HIVES, 05/08/17) Home Meds Active Scripts Cyclobenzaprine Hcl (CYCLOBENZAPRINE HCL) 10 Mg Tablet, 5-10 MG PO TID PRN for MUSCLE SPASMS, #9 TAB 0 [facility] Clonidine Hcl (CLONIDINE HCL) 0.1 Mg Tablet, 0.2 MG PO BID, #10 TAB 0 Refills Take two of the 0.1mg (0.2mg total) clonidine tablets in the morning and 0.1mg at night. [facility] 04/14/18 Clonazepam (KLONOPIN) 1 Mg Tablet, 1 MG PO BID, #20 TAB Prov:ERICA SHRESTHA [facility] 04/12/18 Clonidine Hcl (CLONIDINE HCL) 0.1 Mg Tablet, 0.1 MG PO BID, #20 TAB 0 Refills Prov:ERICA SHRESTHA [facility] 04/12/18 Promethazine Hcl (PROMETHAZINE HCL) 25 Mg Tablet, 25 MG PO Q8H PRN for NAUSEA/VOMITING, #12 TAB Prov:[facility] 03/07/15 Trazodone Hcl (TRAZODONE HCL) 50 Mg Tablet, 50 MG PO BID, #60 Prov:GRECIA HARRIS MD 03/12/14 Reported Medications Omeprazole Magnesium (PRILOSEC OTC) 20 Mg Tablet.dr, 2 TAB PO QDAY, TAB 04/12/18 Escitalopram Oxalate (LEXAPRO) 20 Mg Tablet, 20 MG PO QDAY, TAB 04/12/18 Meloxicam (MELOXICAM) 7.5 Mg Tablet, 5 MG PO QDAY 04/12/18 Gabapentin (Neurontin) 600 Mg Tablet, 600 MG PO TID, 0 Refills 11/16/10 Morphine Sulfate (Dinora) 30 Mg Cap.sr.pel, 90 MG PO QAM, 0 Refills 11/16/10 Levothyroxine Sodium (Levothyroxine Sodium) 50 Mcg Tablet, 75 MCG PO QAM, 0 Refills 11/16/10 Metoprolol Tartrate (Lopressor) 50 Mg Tablet, 50 MG PO BID, 0 Refills 11/16/10 Clonazepam (Klonopin) 1 Mg Tablet, 1 MG PO DAILY, 0 Refills 11/16/10 Baclofen (Lioresal) 10 Mg Tab, 20 MG PO QID, 0 Refills 11/16/10 Oxycodone Hcl/Acetaminophen (Percocet 10/325 Mg Tablet) 10 Mg/325 Mg Tab, 1 TAB PO PRN, 0 Refills 11/16/10 Past Medical/Surgical History The patient has a past medical and surgical history of hypertension, acid reflux, chronic back pain, spinal listhesis, arthritis, hypothyroidism, anxiety, panic attacks, depression, right knee surgery. Tonsillectomy. Reviewed Nurses Notes: Yes Hx Smoking: Yes Smoking Status: Current: Every Day Smoker Hx Substance Use Disorder: No Hx Alcohol Use: No Constitutional Vital Sign - Last 24 Hours 04/14/18 04/14/18 04/14/18 04/14/18 11:05 11:07 11:09 11:15 Temp 98.1 Pulse 69 Resp 20 B/P (MAP) 150/106 (121) 150/106 152/93 (112) 145/99 (114) Pulse Ox 92 O2 Delivery Room Air 04/14/18 04/14/18 04/14/18 04/14/18 11:30 11:32 11:45 12:00 Pulse 65 B/P (MAP) 143/101 (115) 156/105 (122) 159/109 (126) Pulse Ox 93 04/14/18 12:02 Pulse 62 Pulse Ox 93 Physical Exam General Appearance: The patient is alert, has no immediate need for airway protection and no signs of toxicity. Eyes: Pupils equal and round no pallor or injection. ENT, Mouth: Mucous membranes are moist. Respiratory: There are no retractions, lungs are clear to auscultation. Cardiovascular: Regular rate and rhythm. Gastrointestinal: Abdomen is soft and non tender, no masses, bowel sounds normal. Neurological: Alert and oriented 4. Moving all extremities. Follow no commands. No focal neuro deficits. Skin: Warm and dry, no rashes. Musculoskeletal: Neck is supple non tender. Extremities are nontender, nonswollen and have full range of motion. DIFFERENTIAL DIAGNOSIS: After history and physical exam differential diagnosis was considered for hypertension, withdrawal symptoms. Medical Decision Making ED Course/Re-evaluation ED Course The patient was admitted to room. A history and physical were obtained. Differential diagnoses were considered. After speaking with the patient, we elected to increase the clonidine from 0.1 mg in the morning to 0.2 mg in the morning and continue with 0.1 mg at night, I did tell the patient to be cautious while doing this as it can cause hypotension, patient expressed understanding. The patient was also instructed to follow-up with her primary care provider. She was also given a prescription for Flexeril for her left knee discomfort secondary to total knee replacement. The patient had no other questions or concerns at this time and was discharged home. Return to ER for any other concerns or worsening symptoms. Decision to Disposition Date: Apr 14, 2018 Decision to Disposition Time: 12:10 Depart Departure Latest Vital Signs Vital Signs Date Time Temp Pulse Resp B/P (MAP) Pulse Ox O2 Delivery O2 Flow Rate FiO2 04/14/18 12:02 62 93 04/14/18 12:00 159/109 (126) 04/14/18 11:07 98.1 20 Room Air Impression: Primary Impression: Hypertension Additional Impression: Opiate withdrawal Condition: Improved Disposition: HOME OR SELF-CARE Referrals: ZEUS SELBY DO (PCP) New Scripts Cyclobenzaprine Hcl (CYCLOBENZAPRINE HCL) 10 Mg Tablet 5-10 MG PO TID PRN for MUSCLE SPASMS, #9 TAB 0 Refills Prov: ERICA SHRESTHAP- 04/14/18 Clonidine Hcl (CLONIDINE HCL) 0.1 Mg Tablet 0.2 MG PO BID, #10 TAB 0 Refills Take two of the 0.1mg (0.2mg total) clonidine tablets in the morning and 0.1mg at night. Prov: ERICA SHRESTHA 04/14/18 Patient Instructions: Hypertension (ED), Opioid Pain Management (ED), Opioid Withdrawal (ED) Additional Instructions: Take 2 of the 0.1mg clonidine tablets (0.2mg total), in the morning, and ONLY one of the 0.1mg tablets at night, be careful with the changes in medication, it can cause very low blood pressure, if this happens, please stop taking two in the morning and continue taking only one in the morning. Be sure to drink plenty of water. Get plenty of rest. Keep your appointment with Dr. Selby on Saturday. I would consider re-calibrating your blood pressure devise. Return to the ED for any other concerns or worsening symptoms. Problem Qualifiers Primary Impression: Hypertension Hypertension type: unspecified Qualified Codes: I10 - Essential (primary) hypertension ERICA SHRESTHAP- Apr 14, 2018 11:25
[2018-04-14] MEDS ORDERED: CLON-327 PO (11:38)
[2018-04-14] MEDS ORDERED: CYCL10TA29 PO (11:38)
[2018-04-14 12:00] VITALS: BP 159/109
== END 2018-04-14 12:22 | disposition home or self-care (01) ==
LOC: ER 11:09
DX: I10 Essential (primary) hypertension (principal); F11.23 Opioid dependence with withdrawal
CPT/HCPCS: 99283